=== PATIENT | male | born 1995 | race Caucasian/White ===

== ENCOUNTER 2016-09-29 12:20 | Emergency (ER) | payer OTHER ==
[~2016-09-29 12:20] MED LIST: ATARAX PO; BENADRYL PO; CIPRO PO; DICLOFENAC PO; MEDROL PO; MOTRIN600 M2 PO; NO MEDICATIONS; PREDNISONE PO; REGLAN10 MG PO; ROBAXIN500 MG PO; VOLTAREN75 MG PO; ZOFRAN ODT4 MG/UDTAB PO
[2016-09-29 14:09] LABS: URINE SOURCE CLEAN CATCH
[2016-09-29 14:15] LABS: URINE APPEARANCE CLEAR; URINE BILIRUBIN NEG (NEG); URINE BLOOD NEG (NEG); URINE COLOR YELLOW; URINE GLUCOSE NEG (NORM); URINE KETONE NEG (NEG); URINE LEUKOCYTE ESTERASE NEG (NEG); URINE NITRATE NEG (NEG); URINE PH 8.5 (5-8); URINE PROTEIN 1+ (NEG)
[2016-09-29 14:24] LABS: CULTURE INDICATED? NO; MICRO INDICATED? YES; URINE BACTERIA NEG (NEG); URINE RBC 0-2 /[HPF] (0-2); URINE WBC 0-2 /[HPF] (0-5)
== END 2016-09-29 14:54 | disposition home or self-care (01) ==
LOC: SED 12:20
PROVIDERS: Emergency Medicine
DX: K29.00 Acute gastritis without bleeding (principal); F17.200 Nicotine dependence, unspecified, uncomplicated
CPT/HCPCS: 81003; 96372; 96374; 96375; 99284; J0500; J2405